=== PATIENT | male | born 1985 | race Caucasian/White ===

== ENCOUNTER → 2018-09-21 | Outpatient (CLI) | payer OTHER | LOC: MHCPAIN 13:26 | DX: G89.29 Other chronic pain (principal); M79.2 Neuralgia and neuritis, unspecified; M25.512 Pain in left shoulder | CPT/HCPCS: G0463 ==

== ENCOUNTER → 2020-08-12 | Outpatient (CLI) | payer OTHER | LOC: COL.LAB 08:15 | DX: Z01.812 Encounter for preprocedural laboratory examination (principal); Z20.828 Contact with and (suspected) exposure to other viral communicable diseases ==

== ENCOUNTER → 2020-09-09 | Outpatient (CLI) | payer OTHER | LOC: COL.LAB 09:47 | DX: M47.812 Spondylosis without myelopathy or radiculopathy, cervical region (principal); Z20.828 Contact with and (suspected) exposure to other viral communicable diseases ==

== ENCOUNTER → 2020-09-23 | Outpatient (CLI) | payer OTHER | LOC: COL.LAB 08:20 | DX: M47.812 Spondylosis without myelopathy or radiculopathy, cervical region (principal); Z20.828 Contact with and (suspected) exposure to other viral communicable diseases ==